=== PATIENT | male | born 1930 | race African-American/Black ===

== ENCOUNTER 2021-07-28 21:36 | Emergency (ER) | payer OTHER ==
[2021-07-28 21:51] VITALS: BP 161/79; PULSE 94; TEMP 98.2; BMI 29.7
[2021-07-28] MEDS ORDERED: ACETAMINOPHEN 325 MG TABLET (FP) PO PRN (23:40)
[2021-07-29] MEDS ORDERED: ACETAMINOPHEN 325 MG TABLET (FP) PO ONE (00:04)
[2021-07-29] MEDS ORDERED: ACETAMINOPHEN 325 MG TABLET (FP) ONE (00:17)
== END 2021-07-29 01:03 | disposition home or self-care (01) ==
LOC: JER 21:36
DX: R60.0 Localized edema (principal)
CPT/HCPCS: 93970-TC; 99284-25

== ENCOUNTER 2021-08-03 12:06 | Inpatient (IN) | payer OTHER ==
[2021-08-03 12:15] VITALS: BMI 28.5
[2021-08-03] MEDS ORDERED: SODIUM CHLORIDE 0.9% 1000 ML INFUS.BAG IV ONE (13:15)
[2021-08-03] MEDS ORDERED: ACETAMINOPHEN 1000 MG/100 ML BAG IVPB ONE (13:16)
[2021-08-03] MEDS ORDERED: ACETAMINOPHEN INJECTION 100 ML IVPB ONE (13:25)
[2021-08-03 14:13] LABS: BASO % 0.2 % (0-2.0); EOS % 0.1 % (0-4.5); HEMATOCRIT 42.7 % (35.4-49); LYMPH % 3.1 % (8-40); MCHC 32.7 g/dl (32.0-35.9); MEAN CELL VOLUME 91.6 fl (80-96); MONO % 6.3 % (3.8-10.2); NEUT % 90.3 % (42.8-82.8); PLATELET COUNT 293 10^3/uL (134-434); RBC 4.66 M/mm3 (4.00-5.60); RDW 16.4 % (11.9-15.9); WHITE BLOOD COUNT 12.5 K/mm3 (4.0-10.0)
[2021-08-03 14:41] LABS: ALBUMIN 2.6 g/dl (3.4-5.0); BLOOD UREA NITROGEN 12.3 mg/dL (7-18); CALCIUM 9.3 mg/dL (8.5-10.1)
[2021-08-03 14:44] LABS: CREATININE 1.1 mg/dL (0.55-1.3)
[2021-08-03 14:46] LABS: BILIRUBIN,TOTAL 1.4 mg/dL (0.2-1); TOT PROT 7.3 g/dl (6.4-8.2)
[2021-08-03 14:49] LABS: LACTIC ACID 2.8 mmol/L (0.4-2.0)
[2021-08-03] MEDS ORDERED: PIPERACILLIN/TAZOB 3.375 GM 3.375 GM in DEXTROSE 5%-WATER - 50 ML IVPB ONE (18:28)
[2021-08-03] MEDS ORDERED: VANCOMYCIN 1 GM in D5W (PRE-DOCKED) 1,000 MG/250 ML IVPB ONE (18:29)
[2021-08-03] MEDS ORDERED: VANCOMYCIN 1 GRAM (PRE-DOCKED) 1,000 MG/250 ML BAG IVPB ONE (18:44)
[2021-08-03] MEDS ORDERED: PIPERACILLIN/TAZOB 3.375 GM 3.375 GM/50 ML BAG IVPB ONE (18:44)
[2021-08-03 20:33] LABS: LACTIC ACID 2.6 mmol/L (0.4-2.0)
[2021-08-03 21:35] LABS: EPI CELLS 19 /uL (0-25.1); HYALINE CASTS 5 /uL (0-3.1); PH,URINE 7.5 (5.0-8.0); URINE APPEARANCE TURBID; URINE BACTERIA >9,000 /uL (0-1359); URINE BILIRUBIN NEGATIVE (NEGATIVE); URINE COLOR YELLOW; URINE GLUCOSE (UA) NEGATIVE (NEGATIVE); URINE KETONE TRACE (NEGATIVE); URINE LEUK ESTERASE 3+ (NEGATIVE); URINE NITRITE NEGATIVE (NEGATIVE); URINE PROTEIN 2+ (NEGATIVE); URINE RBC 482 /uL (0-23.9); URINE WBC 5428 /uL (0-25.8)
[2021-08-03] MEDS ORDERED: ACETAMINOPHEN 325 MG TABLET (FP) PO PRN (22:29)
[2021-08-04 00:05] LABS: CALCIUM 8.1 mg/dL (8.5-10.1)
[2021-08-04 00:09] LABS: CREATININE 1.2 mg/dL (0.55-1.3)
[2021-08-04] MEDS ORDERED: PIPERACILLIN/TAZOB 2.25 GM 2.25 GM/50 ML BAG IVPB ONE (01:23)
[2021-08-04] MEDS: PIPERACILLIN/TAZOB 2.25 GM 2.25 GM in DEXTROSE 5%-WATER - 50 ML IVPB SCH ×4 (01:42→12:58)
[2021-08-04] MEDS ORDERED: ACETAMINOPHEN 325 MG TABLET (FP) PO ONE ×2 (03:05→03:45)
[2021-08-04] MEDS ORDERED: PIPERACILLIN/TAZOBACTAM 2.25 GM VIAL IVPB ONE (06:33)
[2021-08-04] MEDS ORDERED: DEXTROSE 5%-WATER - 50 ML IVPB ONE ×2 (06:34→17:53)
[2021-08-04] MEDS: POLYETHYLENE GLYCOL (HEALTHYLAX) 3350 17 GM PACKET PO SCH ×3 (06:51→22:09)
[2021-08-04] MEDS: INSULIN SLIDING SCALE (NOVOLOG) 1 VIAL SQ SCH ×4 (06:51→22:09)
[2021-08-04] MEDS ORDERED: INSULIN SLIDING SCALE (NOVOLOG) 1 VIAL SQ SCH (07:00)
[2021-08-04] MEDS ORDERED: SODIUM CHLORIDE 1,000 ML IV STA (08:12)
[2021-08-04 09:20] LABS: HEMATOCRIT 34.4 % (35.4-49); HEMOGLOBIN 11.6 GM/dL (11.7-16.9); MCH 30.5 pg (25.7-33.7); MCHC 33.8 g/dl (32.0-35.9); MEAN CELL VOLUME 90.2 fl (80-96); MEAN PLT VOLUME 7.4 fl (7.5-11.1); PLATELET COUNT 263 10^3/uL (134-434); RBC 3.81 M/mm3 (4.00-5.60); RDW 16.4 % (11.9-15.9); WHITE BLOOD COUNT 13.5 K/mm3 (4.0-10.0)
[2021-08-04 09:53] LABS: BLOOD UREA NITROGEN 16.7 mg/dL (7-18); CALCIUM 8.4 mg/dL (8.5-10.1)
[2021-08-04 09:56] LABS: CREATININE 1.2 mg/dL (0.55-1.3)
[2021-08-04] MEDS: SODIUM CHLORIDE 1,000 ML IV SCH (10:13)
[2021-08-04] MEDS: ENOXAPARIN NA (PORCINE) 40 MG/0.4 ML DISP.SYRIN SQ SCH (11:53)
[2021-08-04 12:40] LABS: ANISOCYTOSIS 0; MACROCYTOSIS 0; OVALOCYTE 1+; TEAR DROP CELLS 1+; TOXIC GRANULATION 2+
[2021-08-04] MEDS: ACETAMINOPHEN 325 MG TABLET (FP) PO PRN (13:08)
[2021-08-04] MEDS ORDERED: PIPERACILLIN/TAZOBACTAM 3.375 GM VIAL IVPB ONE (17:53)
[2021-08-04] MEDS: ASPIRIN COATED 81 MG TABLET.EC PO SCH (18:01)
[2021-08-04] MEDS: PIPERACILLIN/TAZOB 3.375 GM 3.375 GM in DEXTROSE 5%-WATER - 50 ML IVPB SCH (18:01)
[2021-08-04] MEDS: ATORVASTATIN CA 20 MG TABLET (FP) PO SCH (22:09)
[2021-08-05] MEDS ORDERED: DEXTROSE 5%-WATER - 50 ML IVPB ONE ×3 (01:10→17:30)
[2021-08-05] MEDS ORDERED: PIPERACILLIN/TAZOBACTAM 3.375 GM VIAL IVPB ONE ×2 (01:10→10:16)
[2021-08-05] MEDS: PIPERACILLIN/TAZOB 3.375 GM 3.375 GM in DEXTROSE 5%-WATER - 50 ML IVPB SCH ×2 (01:22→11:00)
[2021-08-05] MEDS: POLYETHYLENE GLYCOL (HEALTHYLAX) 3350 17 GM PACKET PO SCH ×3 (05:28→21:41)
[2021-08-05] MEDS: INSULIN SLIDING SCALE (NOVOLOG) 1 VIAL SQ SCH ×4 (06:44→21:40)
[2021-08-05] MEDS: ENOXAPARIN NA (PORCINE) 40 MG/0.4 ML DISP.SYRIN SQ SCH (10:55)
[2021-08-05] MEDS: ASPIRIN COATED 81 MG TABLET.EC PO SCH (11:05)
[2021-08-05] MEDS: SODIUM CHLORIDE 1,000 ML IV SCH ×2 (11:06→15:56)
[2021-08-05] MEDS ORDERED: CEFTRIAXONE 1 GM in DEXTROSE 5%-WATER - 50 ML IVPB SCH (11:45)
[2021-08-05] MEDS: DOCUSATE SODIUM 100 MG CAPSULE (FP) PO SCH (12:29)
[2021-08-05] MEDS: ACETAMINOPHEN 325 MG TABLET (FP) PO PRN (13:00)
[2021-08-05 14:10] LABS: CALCIUM 7.8 mg/dL (8.5-10.1)
[2021-08-05 14:11] LABS: BLOOD UREA NITROGEN 14.5 mg/dL (7-18); MAGNESIUM 2.1 mg/dL (1.8-2.4)
[2021-08-05 14:14] LABS: CREATININE 0.8 mg/dL (0.55-1.3); PHOSPHOROUS 2.2 mg/dL (2.5-4.9)
[2021-08-05 14:25] LABS: HEMATOCRIT 37.4 % (35.4-49); HEMOGLOBIN 12.5 GM/dL (11.7-16.9); MCH 30.4 pg (25.7-33.7); MCHC 33.4 g/dl (32.0-35.9); MEAN CELL VOLUME 90.8 fl (80-96); MEAN PLT VOLUME 7.2 fl (7.5-11.1); PLATELET COUNT 295 10^3/uL (134-434); RBC 4.12 M/mm3 (4.00-5.60); RDW 16.7 % (11.9-15.9); WHITE BLOOD COUNT 15.2 K/mm3 (4.0-10.0)
[2021-08-05] MEDS ORDERED: NAPH,MB-DB/K PH,MBDB POWDER PACKET PO ONE (17:13)
[2021-08-05] MEDS ORDERED: cefTRIAXone SODIUM 1 GM VIAL ONE (17:30)
[2021-08-05] MEDS: CEFTRIAXONE 1 GM in DEXTROSE 5%-WATER - 50 ML IVPB SCH (17:35)
[2021-08-05] MEDS: ATORVASTATIN CA 20 MG TABLET (FP) PO SCH (21:41)
[2021-08-05] MEDS: SENNOSIDES 8.6MG TABLET (FP) PO SCH (21:41)
[2021-08-06] MEDS: POLYETHYLENE GLYCOL (HEALTHYLAX) 3350 17 GM PACKET PO SCH ×3 (05:52→21:50)
[2021-08-06] MEDS: SODIUM CHLORIDE 1,000 ML IV SCH ×3 (06:36→17:33)
[2021-08-06] MEDS: INSULIN SLIDING SCALE (NOVOLOG) 1 VIAL SQ SCH ×4 (07:16→21:51)
[2021-08-06 09:37] LABS: HEMOGLOBIN 11.6 GM/dL (11.7-16.9); MCH 30.4 pg (25.7-33.7); MEAN CELL VOLUME 89.3 fl (80-96); MEAN PLT VOLUME 7.2 fl (7.5-11.1); PLATELET COUNT 298 10^3/uL (134-434); RBC 3.81 M/mm3 (4.00-5.60); RDW 16.6 % (11.9-15.9); WHITE BLOOD COUNT 14.5 K/mm3 (4.0-10.0)
[2021-08-06] MEDS ORDERED: cefTRIAXone SODIUM 1 GM VIAL ONE (09:50)
[2021-08-06] MEDS ORDERED: DEXTROSE 5%-WATER - 50 ML IVPB ONE (09:50)
[2021-08-06 09:51] LABS: CREATININE 0.7 mg/dL (0.55-1.3)
[2021-08-06] MEDS: DOCUSATE SODIUM 100 MG CAPSULE (FP) PO SCH (09:55)
[2021-08-06] MEDS: CEFTRIAXONE 1 GM in DEXTROSE 5%-WATER - 50 ML IVPB SCH (09:55)
[2021-08-06] MEDS: ENOXAPARIN NA (PORCINE) 40 MG/0.4 ML DISP.SYRIN SQ SCH (09:55)
[2021-08-06] MEDS: ASPIRIN COATED 81 MG TABLET.EC PO SCH (09:56)
[2021-08-06] MEDS: SENNOSIDES 8.6MG TABLET (FP) PO SCH (21:51)
[2021-08-06] MEDS: ATORVASTATIN CA 20 MG TABLET (FP) PO SCH (21:51)
[2021-08-06] MEDS: ACETAMINOPHEN 325 MG TABLET (FP) PO PRN (22:56)
[2021-08-07] MEDS ORDERED: METOPROLOL TARTRATE 5 MG/5 ML VIAL IVPUSH ONE (01:02)
[2021-08-07] MEDS ORDERED: METOPROLOL TARTRATE 25 MG TABLET (FP) PO SCH (01:15)
[2021-08-07] MEDS: metoPROLOL SUCCINATE 25 MG TAB.SR.24H (FP) PO SCH ×2 (01:51→09:34)
[2021-08-07] MEDS: POLYETHYLENE GLYCOL (HEALTHYLAX) 3350 17 GM PACKET PO SCH ×3 (06:23→22:59)
[2021-08-07] MEDS: INSULIN SLIDING SCALE (NOVOLOG) 1 VIAL SQ SCH ×4 (06:28→23:08)
[2021-08-07] MEDS ORDERED: DEXTROSE 5%-WATER - 50 ML IVPB ONE (09:27)
[2021-08-07] MEDS ORDERED: cefTRIAXone SODIUM 1 GM VIAL ONE (09:27)
[2021-08-07] MEDS: APIXABAN 5 MG TABLET PO SCH ×2 (09:33→23:01)
[2021-08-07] MEDS: CEFTRIAXONE 1 GM in DEXTROSE 5%-WATER - 50 ML IVPB SCH (09:33)
[2021-08-07] MEDS: ASPIRIN COATED 81 MG TABLET.EC PO SCH (09:34)
[2021-08-07] MEDS: SODIUM CHLORIDE 1,000 ML IV SCH ×2 (09:34→17:25)
[2021-08-07] MEDS: DOCUSATE SODIUM 100 MG CAPSULE (FP) PO SCH (09:34)
[2021-08-07] MEDS: ATORVASTATIN CA 20 MG TABLET (FP) PO SCH (23:00)
[2021-08-07] MEDS: SENNOSIDES 8.6MG TABLET (FP) PO SCH (23:00)
[2021-08-08] MEDS: POLYETHYLENE GLYCOL (HEALTHYLAX) 3350 17 GM PACKET PO SCH ×3 (05:51→21:49)
[2021-08-08] MEDS: INSULIN SLIDING SCALE (NOVOLOG) 1 VIAL SQ SCH ×4 (06:17→21:53)
[2021-08-08] MEDS: SODIUM CHLORIDE 1,000 ML IV SCH (09:40)
[2021-08-08 10:38] LABS: BASO % 0.6 % (0-2.0); EOS % 6.6 % (0-4.5); HEMATOCRIT 33.8 % (35.4-49); HEMOGLOBIN 11.3 GM/dL (11.7-16.9); LYMPH % 6.9 % (8-40); MCH 30.3 pg (25.7-33.7); MCHC 33.6 g/dl (32.0-35.9); MEAN CELL VOLUME 90.2 fl (80-96); MONO % 4.9 % (3.8-10.2); PLATELET COUNT 330 10^3/uL (134-434); RBC 3.74 M/mm3 (4.00-5.60); RDW 16.6 % (11.9-15.9); WHITE BLOOD COUNT 8.3 K/mm3 (4.0-10.0)
[2021-08-08] MEDS ORDERED: cefTRIAXone SODIUM 1 GM VIAL ONE (10:51)
[2021-08-08] MEDS ORDERED: DEXTROSE 5%-WATER - 50 ML IVPB ONE (10:51)
[2021-08-08] MEDS: DOCUSATE SODIUM 100 MG CAPSULE (FP) PO SCH (10:55)
[2021-08-08] MEDS: metoPROLOL SUCCINATE 25 MG TAB.SR.24H (FP) PO SCH (10:56)
[2021-08-08] MEDS: ASPIRIN COATED 81 MG TABLET.EC PO SCH (10:56)
[2021-08-08] MEDS: APIXABAN 5 MG TABLET PO SCH ×2 (10:56→21:49)
[2021-08-08 10:57] LABS: BLOOD UREA NITROGEN 7.7 mg/dL (7-18); CALCIUM 7.8 mg/dL (8.5-10.1); MAGNESIUM 2.2 mg/dL (1.8-2.4)
[2021-08-08] MEDS: CEFTRIAXONE 1 GM in DEXTROSE 5%-WATER - 50 ML IVPB SCH (10:57)
[2021-08-08 11:00] LABS: CREATININE 0.7 mg/dL (0.55-1.3); PHOSPHOROUS 2.1 mg/dL (2.5-4.9)
[2021-08-08 11:02] LABS: BILIRUBIN,TOTAL 0.6 mg/dL (0.2-1); TOT PROT 5.5 g/dl (6.4-8.2)
[2021-08-08] MEDS ORDERED: NAPH,MB-DB/K PH,MBDB POWDER PACKET PO ONE ×2 (11:08→16:00)
[2021-08-08 11:11] LABS: ALBUMIN 1.6 g/dl (3.4-5.0)
[2021-08-08 14:07] LABS: SARS-CoV-2 NAA Not Detected (Not Detected)
[2021-08-08] MEDS: NYSTATIN 100,000 UNIT/GM TOPICAL CREAM 15 GM TUBE TP SCH (17:31)
[2021-08-08] MEDS: ATORVASTATIN CA 20 MG TABLET (FP) PO SCH (21:49)
[2021-08-08] MEDS: SENNOSIDES 8.6MG TABLET (FP) PO SCH (21:49)
[2021-08-09] MEDS: NYSTATIN 100,000 UNIT/GM TOPICAL CREAM 15 GM TUBE TP SCH ×3 (00:25→11:38)
[2021-08-09] MEDS: SODIUM CHLORIDE 1,000 ML IV SCH ×2 (02:15→10:08)
[2021-08-09 05:44] VITALS: TEMP 98.5
[2021-08-09] MEDS: POLYETHYLENE GLYCOL (HEALTHYLAX) 3350 17 GM PACKET PO SCH ×2 (05:54→15:13)
[2021-08-09] MEDS: INSULIN SLIDING SCALE (NOVOLOG) 1 VIAL SQ SCH ×2 (06:03→11:38)
[2021-08-09] MEDS ORDERED: DEXTROSE 5%-WATER - 50 ML IVPB ONE (10:06)
[2021-08-09] MEDS ORDERED: cefTRIAXone SODIUM 1 GM VIAL ONE (10:06)
[2021-08-09] MEDS: CEFTRIAXONE 1 GM in DEXTROSE 5%-WATER - 50 ML IVPB SCH (10:07)
[2021-08-09] MEDS: metoPROLOL SUCCINATE 25 MG TAB.SR.24H (FP) PO SCH (10:08)
[2021-08-09] MEDS: ASPIRIN COATED 81 MG TABLET.EC PO SCH (10:08)
[2021-08-09] MEDS: APIXABAN 5 MG TABLET PO SCH (10:08)
[2021-08-09] MEDS: DOCUSATE SODIUM 100 MG CAPSULE (FP) PO SCH (10:08)
[2021-08-09 14:23] VITALS: BP 152/83; PULSE 80
== END 2021-08-09 15:57 | disposition home or self-care (01) | DRG 698 ==
LOC: JER 12:06 → JERBED 18:31 → J5S 08-04 02:26
PROVIDERS: ADMIT Internal Medicine
DX: T83.511A Infection and inflammatory reaction due to indwelling urethral catheter, initial encounter (principal); A41.59 Other Gram-negative sepsis; E87.2 Acidosis; E87.1 Hypo-osmolality and hyponatremia; I50.30 Unspecified diastolic (congestive) heart failure; I13.0 Hypertensive heart and chronic kidney disease with heart failure and stage 1 through stage 4 chronic kidney disease, or unspecified chronic kidney disease; N39.0 Urinary tract infection, site not specified; I25.10 Atherosclerotic heart disease of native coronary artery without angina pectoris; I10 Essential (primary) hypertension; E11.9 Type 2 diabetes mellitus without complications; N40.1 Benign prostatic hyperplasia with lower urinary tract symptoms; N31.9 Neuromuscular dysfunction of bladder, unspecified; B36.9 Superficial mycosis, unspecified; Y83.9 Surgical procedure, unspecified as the cause of abnormal reaction of the patient, or of later complication, without mention of misadventure at the time of the procedure; N18.9 Chronic kidney disease, unspecified; D72.829 Elevated white blood cell count, unspecified; E78.5 Hyperlipidemia, unspecified; Z98.61 Coronary angioplasty status; B96.20 Unspecified Escherichia coli [E. coli] as the cause of diseases classified elsewhere; B96.4 Proteus (mirabilis) (morganii) as the cause of diseases classified elsewhere; R33.9 Retention of urine, unspecified
CPT/HCPCS: 36415; 71045-TC-FY; 73700-TC-RT; 74176-TC; 80048; 80053; 81003; 82962; 83036; 83605; 83735; 84100; 85025; 85027; 87040; 87086; 87186; 93005; 93010; 93306-TC; 94010; 97116-GP; 97161-GP; C9803-CS; U0003; U0005